=== PATIENT | male | born 1970 ===

== ENCOUNTER 2024-11-20 13:14 | Outpatient (RCR) | payer MEDICAID, SELFPAY ==
--- NOTE | 2024-11-20 13:48 | PT.OIERPT ---
PT OP Initial Eval Patient Information Outpatient Physical Therapy Treatment Date: 11/20/24 Visit Reasons: Pain in left shoulder Medical Diagnosis: Left Shoulder Pain Treatment Dx #1: Left Shoulder Weakness Treatment Dx #2: Left Shoulder Mobility Deficits Start of Care: 11/20/24 Date of Onset: 3 months ago Smoking Status Smoking Status: Never smoker Initial Assessment Subjective: Pt is a 54 y/o male reports of left shoulder pain and weakness ~ 3 months ago. Pt denies of trauma or injury. Pt's most recent MRI found a torn supraspinatus tendon. Pt has limitation with lifting, chores, self care, cooking, cleaning, and performing recreational activities. Pt has not seen a orthopaedic surgeon yet. Objective: Left Shoulder PROM: all motions are WFL Left Shoulder AROM Flexion: 20 deg Abduction: 10 deg ER and IR: unable Left Shoulder MMTs: grossly 2-/5 Palpation: supraspinatus tendon Special Test (+) drop arm test Assessment: Pt demonstrate left shoulder pain with mobility deficits consistent with rotator cuff tear leading to difficulty with ADLs. Pt will not benefit from physical therapy at this time. Recommend ortho consult prior to attempting physical therapy safely. Pt was evaluated and d/c from care; thank you for your referrals. 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
== END 2024-12-08 23:59 | disposition home or self-care (01) ==
LOC: CPTX 13:14
DX: M25.512 Pain in left shoulder (principal); R53.1 Weakness; S46.812D Strain of other muscles, fascia and tendons at shoulder and upper arm level, left arm, subsequent encounter; X58.XXXD Exposure to other specified factors, subsequent encounter
CPT/HCPCS: 97162

== ENCOUNTER 2025-06-10 15:00 | Outpatient (RCR) | payer MEDICAID, SELFPAY ==
--- NOTE | 2025-05-20 13:09 | PTNOTE_ITS ---
PT OP Initial Eval Patient Information Outpatient Physical Therapy Treatment Date: 05/20/25 Visit Reasons: LEFT UPPER LIMB PAIN Medical Diagnosis: G56.92 Treatment Dx #1: L UE weakness Treatment Dx #2: Decreased ROM L UE Start of Care: 05/20/25 Date of Onset: September 2024 Smoking Status Smoking Status: Never smoker Initial Assessment Subjective: Pt is 54 yr old male who reports gradual weakening of the L UE since September. 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 This limits all ADL's, HH chores and activities. 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 PMH: HTN, cholesterol Imaging: with provider Pt goal: more strength in L UE to move the UE Objective: L shoulder AROM: FF: unable Abd: unable ER: unable Elbow: Flexion: unable Extension: resting position is full extension with hypotonia Hand AROM: Flexion: 40% fist with decreased duplicator punch set up operator strength C/S screen: no pain referral or numbness into the L UE Navarro's reflex: negative on L L duplicator punch set up operator strength: 5 lbs Assessment: Pt presents with flaccid L UE and only AROM of the hand to partially make a fist. It's unclear why this happened but seems like a progressive neurological issue. The C/S screen was negative. Pt may benefit from skilled therapy and has guarded rehab potential depending on the cause. Short Term and Fdc Goals 1. Ind with HEP 2. Improved AROM of L shoulder to 90 deg FF and abduction 3. Improved duplicator punch set up operator strength to 15 lbs on L in order to do ADL's independently 4. Pt will make a full fist in order to duplicator punch set up operator objects Treatment Plan ?1. Manual therapy ? 2. Therex ? 3. Modalities as indicated, moist heat, ice, estim Frequency and Duration: 1-2x a week for 12 visits plus the evaluation Certification Dates: 05/20/25 to 08/18/25 Procedure Charges OP PT Eval Mod Complex 30 minutes: Yes
--- NOTE | 2025-05-26 16:14 | PT.ODAYNRPT ---
PT Outpatient Daily Note OP Daily Note Outpatient Physical Therapy Treatment Date: 05/26/25 Visit Reasons: LEFT UPPER LIMB PAIN Subjective: Doing HEP with some difficulty due to L shoulder weakness Objective: See F/S for therex Assessment: Marked L shoulder weakness but pt able to do AAROM and light resistance therex at about 90 deg FF and abduction with L UE supported Plan: Continue per POC Length of Time (minutes) of Treatment: 30 Minutes Procedure Charges Therapeutic Exercise 30 minutes: Yes
--- NOTE | 2025-05-28 15:37 | PT.ODAYNRPT ---
PT Outpatient Daily Note OP Daily Note Outpatient Physical Therapy Treatment Date: 05/28/25 Visit Reasons: LEFT UPPER LIMB PAIN Subjective: Doing HEP with some difficulty due to L shoulder weakness Objective: See F/S for therex Assessment: Marked L shoulder weakness but pt able to do AAROM and light resistance therex with L UE supported. 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 Plan: Continue per POC Length of Time (minutes) of Treatment: 30 Minutes Procedure Charges Therapeutic Exercise 30 minutes: Yes
--- NOTE | 2025-06-01 16:42 | PT.ODAYNRPT ---
PT Outpatient Daily Note OP Daily Note Outpatient Physical Therapy Treatment Date: 06/01/25 Visit Reasons: LEFT UPPER LIMB PAIN Subjective: Pt reports he has been completing HEP. Objective: Please see flow sheet for ther ex list. 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 Pt highly compensates with upper trap and neck muscles with attempt to move B UE. Plan: Continue with poC. Length of Time (minutes) of Treatment: 30 Minutes Procedure Charges Therapeutic Exercise 30 minutes: Yes
--- NOTE | 2025-06-10 15:53 | PT.ODAYNRPT ---
PT Outpatient Daily Note OP Daily Note Outpatient Physical Therapy Treatment Date: 06/10/25 Visit Reasons: LEFT UPPER LIMB PAIN Subjective: Pt reports using ESTIM machine at home. Objective: Please see flow sheet for ther ex list. Assessment: Minimal to no muscle trance on L UE, performed AAROM and PROM for L UE. Plan: Continue with poC. Length of Time (minutes) of Treatment: 30 Minutes Procedure Charges Therapeutic Exercise 30 minutes: Yes
== END 2025-06-10 23:59 | disposition home or self-care (01) ==
LOC: CPTX 15:00
PROVIDERS: PCP Family Medicine; Referring Provider Family Medicine; Visit Provider Family Medicine
DX: G56.92 Unspecified mononeuropathy of left upper limb (principal); I10 Essential (primary) hypertension
CPT/HCPCS: 97110; 97162